=== PATIENT | male | born 1945 | race Caucasian/White ===

== ENCOUNTER → 2018-04-03 | Outpatient (CLI) | payer MEDICARE, BC ==
[~2018-04-03] MED LIST: AMLODIPINE BESYL5 MG PO; ASPIRIN81 MG PO; ATORVASTATIN CA40 MG PO; INDOMETHACIN25 MG PO; LISINOPRIL5 MG PO; METOPROLOL SUCC25 MG PO
--- NOTE | 2018-04-03 18:26 | Diagnostic Imaging Report ---
PROCEDURE:C-SPINE AP AND LAT WITH FLEX AND EXT COMPARISON:Patients [facility], DX, SPINE CERVICAL AP\T\LAT FLEX\T\EXT, 08/28/2017, 9:15. INDICATIONS:CERVICAL DISC HERNIATION FINDINGS: Cervical spine is visualized in the lateral view from the skull base to superior endplate of T1. Status post anterior fusion of C3-C4 with intact hardware and satisfactory alignment. Minimal interval bony fusion. Degenerative disc changes, predominantly at C5-C6 and C6-C7. Flexion and extension views show no change in alignment at C3-C4. Slight grade 1 anterolisthesis of C2 on C3 during flexion view only. No lytic or blastic lesion. Prevertebral soft tissues are unremarkable. CONCLUSION: 1. Status post anterior fusion C3-C4 with minimal interval bony fusion. Intact hardware with adequate alignment. 2. No change in alignment in flexion and extension views at C3-C4. 3. Slight grade 1 anterolisthesis of C2 on C3 during flexion view only. Cesar Barreto M.D. Dictated by: Cesar Barreto M.D. on 04/03/2018 at 18:30 Electronically approved by: Cesar Barreto M.D. on 04/03/2018 at 18:30
== END ==
LOC: RAD 10:07
PROVIDERS: ATTEND Neurological Surgery
DX: M50.20 Other cervical disc displacement, unspecified cervical region (principal); Z98.1 Arthrodesis status
CPT/HCPCS: 72050

== ENCOUNTER 2021-02-12 17:24 | Inpatient (IN) | payer MEDICARE, BC ==
[~2021-02-12] VITALS: Ht 177.8 cm; Wt 74.4 kg
[2021-02-12] MEDS ORDERED: HYDROCODONE/APAP 10MG-325MG TAB PO ONE (18:00)
[2021-02-12] MEDS ORDERED: HYDROCODONE/APAP 10MG-325MG TAB ONE (18:17)
[2021-02-12 20:04] LABS: BASOPHILS % 0.4 % (0.0-1.0); EOSINOPHILS # (AUTO) 0.1 (0.0-0.4); EOSINOPHILS % 1.5 % (0.0-6.0); HEMOGLOBIN 12.4 g/dL (14.0-18.0); LYMPHOCYTES # (AUTO) 1.4 (1.0-3.2); LYMPHOCYTES % 14.8 % (18.0-39.1); MEAN CORPUSCULAR HEMOGLOBIN 34.5 pg (28-32); MEAN CORPUSCULAR HGB CONC 34.4 g/dL (31-35); MEAN CORPUSCULAR VOLUME 100.3 fL (81-99); MONOCYTES % 10.6 % (4.4-11.3); NEUTROPHILS # (AUTO) 6.6 (2.1-6.9); NEUTROPHILS % 72.3 % (38.7-80.0); PLATELET COUNT 248 x10e3/uL (140-360); RED BLOOD COUNT 3.59 x10e6/uL (4.3-5.7); RED CELL DISTRIBUTION WIDTH 12.4 % (11.7-14.4)
[2021-02-12 20:19] LABS: INR 0.9; PROTHROMBIN TIME 12.7 seconds (11.9-14.5)
[2021-02-12 20:25] LABS: ALANINE AMINOTRANSFERASE 21 IU/L (0-55); ALBUMIN 3.6 g/dL (3.5-5.0); ALBUMIN/GLOBULIN RATIO 1.6 (0.8-2.0); ALKALINE PHOSPHATASE 59 IU/L (40-150); ANION GAP 13.9 mmol/L (8-16); BLOOD UREA NITROGEN 15 mg/dL (7-26); BUN/CREATININE RATIO 21 (6-25); CALCIUM 8.1 mg/dL (8.4-10.2); CARBON DIOXIDE 24 mmol/L (22-29); CHLORIDE 96 mmol/L (98-107); EST GLOMERULAR FILTRATION RATE > 60 ML/MIN (60-); GLUCOSE 110 mg/dL (74-118); POTASSIUM 3.9 mmol/L (3.5-5.1); SODIUM 130 mmol/L (136-145)
[2021-02-12] MEDS ORDERED: HEPARIN SOD (PORCINE) 5,000 UNIT/ML VIAL SC ONE (20:30)
[2021-02-12 22:38] LABS: CLARITY,URINE CLEAR (CLEAR); COLOR,URINE YELLOW (YELLOW); KETONES,URINE NEGATIVE (NEGATIVE); LEUKOCYTE ESTERASE ,URINE NEGATIVE (NEGATIVE); NITRITE,URINE NEGATIVE (NEGATIVE); PROTEIN,URINE DIPSTICK NEGATIVE (NEGATIVE); URINE UROBILINOGEN 0.2 mg/dL (0.2 - 1)
[2021-02-12 22:48] LABS: BACTERIA,URINE RARE /HPF; EPITHELIAL CELLS,URINE RARE /LPF; RBC,URINE 0-5 /HPF (0-5); WBC,URINE (MAN) 0-5 /HPF (0-5)
[2021-02-13] VITALS (7 sets, daily range): BP systolic 139–176; BP diastolic 78–94
[2021-02-13] MEDS: MORPHINE SULFATE INJ 4 MG/ML INJ 1ML IV PRN ×2 (01:26→08:50)
[2021-02-13] MEDS: ONDANSETRON HCL INJ 2MG/ML 2ML 2 MG/ML VIAL IV PRN ×2 (01:26→08:50)
[2021-02-13 05:57] LABS: BASOPHILS % 0.4 % (0.0-1.0); EOSINOPHILS # (AUTO) 0.1 (0.0-0.4); EOSINOPHILS % 0.7 % (0.0-6.0); HEMOGLOBIN 13.8 g/dL (14.0-18.0); LYMPHOCYTES # (AUTO) 1.3 (1.0-3.2); MEAN CORPUSCULAR HEMOGLOBIN 33.7 pg (28-32); MEAN CORPUSCULAR HGB CONC 33.7 g/dL (31-35); MONOCYTES % 12.7 % (4.4-11.3); NEUTROPHILS # (AUTO) 5.6 (2.1-6.9); NEUTROPHILS % 69.8 % (38.7-80.0); PLATELET COUNT 261 x10e3/uL (140-360); RED CELL DISTRIBUTION WIDTH 12.5 % (11.7-14.4)
[2021-02-13 06:17] LABS: ALANINE AMINOTRANSFERASE 22 IU/L (0-55); ALBUMIN 3.8 g/dL (3.5-5.0); ALBUMIN/GLOBULIN RATIO 1.2 (0.8-2.0); ALKALINE PHOSPHATASE 79 IU/L (40-150); BLOOD UREA NITROGEN 10 mg/dL (7-26); BUN/CREATININE RATIO 14 (6-25); CALCIUM 8.8 mg/dL (8.4-10.2); CARBON DIOXIDE 25 mmol/L (22-29); CHLORIDE 97 mmol/L (98-107); CREATININE, SERUM 0.69 mg/dL (0.72-1.25); EST GLOMERULAR FILTRATION RATE > 60 ML/MIN (60-); GLUCOSE 118 mg/dL (74-118); SODIUM 133 mmol/L (136-145)
[2021-02-13] MEDS ORDERED: CLOPIDOGREL75 MG PO (11:21)
[2021-02-13] MEDS ORDERED: ISOSORBIDE MONO20 MG PO (11:26)
[2021-02-13] MEDS ORDERED: ISOSORBIDE MONO30 MG PO (11:26)
[2021-02-13] MEDS ORDERED: RANEXA1000 MG PO (11:26)
[2021-02-13] MEDS ORDERED: CRESTOR10 MG PO (11:26)
[2021-02-13] MEDS: SODIUM CHLORIDE 0.9% 1000ML 1,000 ML IV SCH (12:27)
[2021-02-13] MEDS ORDERED: BUPIVACAINE HCL 0.5% INJ 30 ML VIAL INJ ONE (19:01)
[2021-02-13] MEDS ORDERED: LABETALOL HCL 20 ML ONE (19:26)
[2021-02-13] MEDS: HYDROCODONE/APAP 7.5MG-325MG 1 EA TAB PO PRN (20:51)
[2021-02-13] MEDS: ENOXAPARIN SOD INJ 40 MG/0.4 ML SYR SC SCH (21:07)
[2021-02-13] MEDS: CEFAZOLIN SOD 1 GM/NS 50ML 100 ML IV SCH (22:26)
[2021-02-14] VITALS (8 sets, daily range): BP systolic 115–146; BP diastolic 68–95
[2021-02-14 05:49] LABS: HEMATOCRIT 33.3 % (38.2-49.6); HEMOGLOBIN 11.5 g/dL (14.0-18.0)
[2021-02-14] MEDS: CEFAZOLIN SOD 1 GM/NS 50ML 100 ML IV SCH ×2 (06:01→14:04)
[2021-02-14] MEDS: SODIUM CHLORIDE 0.9% 1000ML 1,000 ML IV SCH (06:02)
[2021-02-14] MEDS: HYDROCODONE/APAP 7.5MG-325MG 1 EA TAB PO PRN ×2 (08:23→20:30)
[2021-02-14] MEDS: RANOLAZINE 500 MG TABSR PO SCH ×2 (09:10→16:40)
[2021-02-14] MEDS: ISOSORBIDE MONONITRATE 30 MG TAB CR PO SCH ×2 (09:10→17:01)
[2021-02-14] MEDS: ASPIRIN 81 MG CHEW TAB PO SCH (09:10)
[2021-02-14] MEDS: METOPROLOL SUCCINATE 25 MG TAB XL PO SCH (09:11)
[2021-02-14] MEDS: ENOXAPARIN SOD INJ 40 MG/0.4 ML SYR SC SCH ×2 (11:14→20:38)
[2021-02-14] MEDS: SIMVASTATIN 20 MG TAB PO SCH (20:29)
[2021-02-15] VITALS (8 sets, daily range): BP systolic 103–134; BP diastolic 64–74
[2021-02-15 04:50] LABS: BASOPHILS % 0.3 % (0.0-1.0); EOSINOPHILS # (AUTO) 0.1 (0.0-0.4); HEMOGLOBIN 10.1 g/dL (14.0-18.0); LYMPHOCYTES # (AUTO) 1.7 (1.0-3.2); LYMPHOCYTES % 23.9 % (18.0-39.1); MEAN CORPUSCULAR HEMOGLOBIN 34.8 pg (28-32); MEAN CORPUSCULAR HGB CONC 34.8 g/dL (31-35); MONOCYTES % 13.6 % (4.4-11.3); NEUTROPHILS # (AUTO) 4.4 (2.1-6.9); NEUTROPHILS % 60.8 % (38.7-80.0); PLATELET COUNT 215 x10e3/uL (140-360); RED CELL DISTRIBUTION WIDTH 12.7 % (11.7-14.4)
[2021-02-15 05:13] LABS: ANION GAP 13.2 mmol/L (8-16); BLOOD UREA NITROGEN 12 mg/dL (7-26); BUN/CREATININE RATIO 18 (6-25); CALCIUM 7.8 mg/dL (8.4-10.2); CARBON DIOXIDE 24 mmol/L (22-29); CHLORIDE 103 mmol/L (98-107); CREATININE, SERUM 0.66 mg/dL (0.72-1.25); EST GLOMERULAR FILTRATION RATE > 60 ML/MIN (60-); GLUCOSE 118 mg/dL (74-118); POTASSIUM 4.2 mmol/L (3.5-5.1); SODIUM 136 mmol/L (136-145)
[2021-02-15 06:04] LABS: HEMATOCRIT 29.1 % (38.2-49.6)
[2021-02-15] MEDS: HYDROCODONE/APAP 5MG-325MG TAB PO PRN (07:30)
[2021-02-15] MEDS: ISOSORBIDE MONONITRATE 30 MG TAB CR PO SCH ×2 (07:45→17:03)
[2021-02-15] MEDS: ASPIRIN 81 MG CHEW TAB PO SCH (07:45)
[2021-02-15] MEDS: METOPROLOL SUCCINATE 25 MG TAB XL PO SCH (07:46)
[2021-02-15] MEDS: RANOLAZINE 500 MG TABSR PO SCH ×2 (07:46→17:04)
[2021-02-15] MEDS: ENOXAPARIN SOD INJ 40 MG/0.4 ML SYR SC SCH ×2 (10:48→23:34)
[2021-02-15] MEDS ORDERED: ONDANSETRON HCL 4 MG ORAL DISINTEGRATING TAB PO PRN (14:15)
[2021-02-15] MEDS: SIMVASTATIN 20 MG TAB PO SCH (21:04)
[2021-02-16] VITALS (8 sets, daily range): BP systolic 124–155; BP diastolic 70–78
[2021-02-16] MEDS: HYDROCODONE/APAP 7.5MG-325MG 1 EA TAB PO PRN (07:27)
[2021-02-16] MEDS: ISOSORBIDE MONONITRATE 30 MG TAB CR PO SCH ×3 (09:00→17:00)
[2021-02-16] MEDS: RANOLAZINE 500 MG TABSR PO SCH ×2 (09:00→17:00)
[2021-02-16] MEDS: ASPIRIN 81 MG CHEW TAB PO SCH (15:00)
[2021-02-16] MEDS: ENOXAPARIN SOD INJ 40 MG/0.4 ML SYR SC SCH (15:00)
[2021-02-16] MEDS: METOPROLOL SUCCINATE 25 MG TAB XL PO SCH (15:00)
[2021-02-16] MEDS: SIMVASTATIN 20 MG TAB PO SCH (20:33)
[2021-02-16] MEDS: HYDROCODONE/APAP 5MG-325MG TAB PO PRN (20:34)
== END 2021-02-16 20:49 | disposition home or self-care (01) | DRG 482 ==
LOC: ER 17:30 → ERHOLD 20:31 → MED/SURG 02-13 04:44
PROVIDERS: ADMIT Internal Medicine; ATTEND Internal Medicine
PROC: 0QH706Z Insertion of Intramedullary Internal Fixation Device into Left Upper Femur, Open Approach (ICD-10-PCS; principal; 2021-02-13 08:30)
DX: S72.142A Displaced intertrochanteric fracture of left femur, initial encounter for closed fracture (principal); I10 Essential (primary) hypertension; Z20.822 Contact with and (suspected) exposure to COVID-19; E78.5 Hyperlipidemia, unspecified; I25.10 Atherosclerotic heart disease of native coronary artery without angina pectoris; Z95.1 Presence of aortocoronary bypass graft; R73.03 Prediabetes; W19.XXXA Unspecified fall, initial encounter; Z77.22 Contact with and (suspected) exposure to environmental tobacco smoke (acute) (chronic); G47.33 Obstructive sleep apnea (adult) (pediatric)
CPT/HCPCS: 36415; 71045; 76000; 80048; 80053; 81001; 85014; 85018; 85025; 85610; 86850; 86900; 93005; 93306; 94660; 97139; 99284; C1713; J0690; J1644; J1650; J2270; J2405; J7030; U0002

== ENCOUNTER → 2024-12-07 | Outpatient (REF) | payer MEDICARE, BC ==
[~2024-12-07] MED LIST changes: +CLOPIDOGREL75 MG PO; +CRESTOR10 MG PO; +ISOSORBIDE MONO20 MG PO; +ISOSORBIDE MONO30 MG PO; +RANEXA1000 MG PO
== END ==
LOC: CT 15:35
PROVIDERS: ATTEND Internal Medicine Critical Care Medicine
DX: Z77.090 Contact with and (suspected) exposure to asbestos (principal)
CPT/HCPCS: 71250